=== PATIENT | female | born 1970 | race Hispanic/Latino ===

== ENCOUNTER → 2019-04-04 | Outpatient (CLI) | payer OTHER | END | disposition home or self-care (01) | LOC: RAH 13:18 | PROVIDERS: ATTEND Internal Medicine Cardiovascular Disease | DX: M85.88 Other specified disorders of bone density and structure, other site (principal) | CPT/HCPCS: 72100 ==

== ENCOUNTER → 2019-04-11 | Outpatient (CLI) | payer OTHER | END | disposition home or self-care (01) | LOC: RAH 08:00 | PROVIDERS: ATTEND Internal Medicine Cardiovascular Disease | DX: R10.9 Unspecified abdominal pain (principal) | CPT/HCPCS: 76700 ==

== ENCOUNTER → 2019-07-20 | Outpatient (CLI) | payer OTHER | END | disposition home or self-care (01) | LOC: SHCH 09:10 | PROVIDERS: ATTEND Internal Medicine Cardiovascular Disease | DX: I25.709 Atherosclerosis of coronary artery bypass graft(s), unspecified, with unspecified angina pectoris (principal) | CPT/HCPCS: 93306 ==

== ENCOUNTER → 2019-07-21 | Outpatient (CLI) | payer OTHER ==
[~2019-07-21] VITALS: Ht 152.4 cm; Wt 80.7 kg
[~2019-07-21] MED LIST: REGADENOSON 0.4 MG/5 ML PF SYG IVP SCH
== END | disposition home or self-care (01) ==
LOC: SHCH 07:50
PROVIDERS: ATTEND Internal Medicine Cardiovascular Disease
DX: I35.0 Nonrheumatic aortic (valve) stenosis (principal); R06.00 Dyspnea, unspecified
CPT/HCPCS: 78452; 93017; 96374; A9500 ×2; J2785

== ENCOUNTER 2020-04-08 14:29 | Observation (INO) | payer OTHER ==
[~2020-04-08] VITALS: Ht 154.9 cm; Wt 90.3 kg
[2020-04-08 14:52] LABS: BASOPHILS % (AUTO) 0.6 % (0.0-5.0); EOSINOPHILS % (AUTO) 0.9 % (0.0-8.0); HEMATOCRIT 47.5 % (36-48); LYMPHOCYTES % (AUTO) 22.5 % (21.0-51.0); MEAN CORPUSCULAR HEMOGLOBIN 32.4 pg (27.0-33.0); MEAN CORPUSCULAR HGB CONC 33.3 g/dL (32.0-36.0); MEAN CORPUSCULAR VOLUME 97.5 fL (79-99); MONOCYTES % (AUTO) 9.8 % (3.0-13.0); PLATELET COUNT (AUTO) 351 K/uL (130-400); RED BLOOD CELL COUNT(AUTO) 4.87 MIL/uL (4.00-5.50); RED CELL DISTRIBUTION WIDTH 17.2 % (11.0-15.5); WHITE BLOOD COUNT (AUTO) 8.5 K/uL (4.8-10.8)
[2020-04-08 15:01] LABS: CREATININE 0.7 mg/dL (0.5-1.5); POTASSIUM 3.4 mmol/L (3.5-5.1)
[2020-04-08 15:03] LABS: INR 2.44 (0.85-1.15); PARTIAL THROMBOPLASTIN TIME 37.4 SEC (26.3-35.5); PROTHROMBIN TIME 25.5 SEC (9.6-11.6)
[2020-04-08 15:05] LABS: ALBUMIN 3.9 g/dL (3.5-5.0); BILIRUBIN,TOTAL 1.6 mg/dL (0.2-1.0); TOTAL PROTEIN, SERUM 8.8 g/dL (6.0-8.3)
[2020-04-08 15:13] LABS: B-TYPE NATRIURETIC PEPTIDE 208 pg/mL (0-100)
[2020-04-08] MEDS ORDERED: IOHEXOL-350 50ML VIAL IV ONE (15:19)
[2020-04-08] MEDS ORDERED: LACTULOSE 20 GM/30 ML UDCUP PO PRN (18:30)
[2020-04-08] MEDS ORDERED: ACETAMINOPHEN 325 MG TAB PO PRN ×2 (18:30)
[2020-04-08] MEDS ORDERED: HYDRALAZINE HCL 20 MG/ML VIAL IV PRN (18:30)
[2020-04-08] MEDS ORDERED: ONDANSETRON HCL 4 MG/2 ML VIAL IV PRN (18:30)
[2020-04-08] MEDS ORDERED: IPRATROPIUM/ALBUTEROL SULFATE 3 ML SOLUTION IH PRN (18:30)
[2020-04-08] MEDS ORDERED: FUROSEMIDE 10 MG/ML 4ML VIAL ONE (18:41)
[2020-04-08] MEDS: FUROSEMIDE 10 MG/ML 4ML VIAL IV SCH (19:30)
[2020-04-08] MEDS ORDERED: FAMOTIDINE 20MG TAB 20 MG TAB ONE (20:50)
[2020-04-08] MEDS ORDERED: ZOSYN 3.375GM+NS 50ML 50 ML IV ONE (20:50)
[2020-04-08] MEDS: POTASSIUM CHLORIDE 20 MEQ ERTAB PO SCH (21:00)
[2020-04-08] MEDS ORDERED: POTASSIUM CHLORIDE 20 MEQ ERTAB PO SCH (21:00)
[2020-04-08] MEDS: INSULIN HUMULIN R 100 UNIT/ML 3ML SQ SCH (21:00)
[2020-04-08] MEDS: FAMOTIDINE 20MG TAB 20 MG TAB PO SCH (21:00)
[2020-04-08] MEDS: ZOSYN 3.375GM+NS 50ML 50 ML IV SCH (21:00)
[2020-04-08 21:03] LABS: APPEARANCE,URINE Clear (CLEAR); BILIRUBIN,URINE Negative (NEGATIVE); COLOR,URINE Yellow (YELLOW); GLUCOSE, URINE (UA) Negative (NEGATIVE); KETONES,URINE Negative (NEGATIVE); LEUKOCYTE ESTERASE ,URINE Negative (NEGATIVE); NITRATE,URINE Negative (NEGATIVE); OCCULT BLOOD,URINE Moderate (NEGATIVE); PH,URINE 7.5 (5.0-8.0); PROTEIN,URINE Negative (NEGATIVE)
[2020-04-08 21:15] LABS: WBC,URINE 0-1 /HPF (0-1)
[2020-04-08 21:16] LABS: BACTERIA,URINE Rare /HPF (None Seen); SQUAMOUS EPITHELIAL CELL,UR Few /HPF (0-2)
[2020-04-08 23:23] VITALS: BP 154/103
--- NOTE | 2020-04-09 01:46 | NUR ---
received report from er nurse ion, pt arrived in unit, admission assessment done, education given , pt verbalized understanding, head of bed elevated to 45 degrees, reconciled medication, timed medication given , see emar, 12 cc done, safety maintained, bedin lowest position, call rachel in reached, will continue to monitor.
[2020-04-09] MEDS ORDERED: AEC81 PO (01:59)
[2020-04-09] MEDS ORDERED: WARF-57 PO (01:59)
[2020-04-09] MEDS ORDERED: SAXA1TBM2 PO (01:59)
[2020-04-09] MEDS ORDERED: METO-409 PO (01:59)
[2020-04-09] MEDS ORDERED: FERS325 PO (01:59)
[2020-04-09] MEDS ORDERED: FURO40TA5 PO (01:59)
[2020-04-09] MEDS ORDERED: LOSA50TA64 PO (01:59)
[2020-04-09 03:33] LABS: BASOPHILS % (AUTO) 0.7 % (0.0-5.0); HEMATOCRIT 41.8 % (36-48); LYMPHOCYTES % (AUTO) 20.4 % (21.0-51.0); MEAN CORPUSCULAR HEMOGLOBIN 32.4 pg (27.0-33.0); MEAN CORPUSCULAR HGB CONC 33.3 g/dL (32.0-36.0); MEAN CORPUSCULAR VOLUME 97.4 fL (79-99); MONOCYTES % (AUTO) 11.3 % (3.0-13.0); NEUTROPHILS % (AUTO) 66.5 % (40.0-77.0); PLATELET COUNT (AUTO) 335 K/uL (130-400); RED BLOOD CELL COUNT(AUTO) 4.29 MIL/uL (4.00-5.50); RED CELL DISTRIBUTION WIDTH 17.1 % (11.0-15.5); WHITE BLOOD COUNT (AUTO) 8.2 K/uL (4.8-10.8)
[2020-04-09 03:44] LABS: CREATININE 0.6 mg/dL (0.5-1.5); INR 1.97 (0.85-1.15); POTASSIUM 3.7 mmol/L (3.5-5.1); PROTHROMBIN TIME 20.7 SEC (9.6-11.6)
[2020-04-09 04:03] LABS: B-TYPE NATRIURETIC PEPTIDE 255 pg/mL (0-100)
[2020-04-09 04:20] VITALS: BP 118/80
[2020-04-09] MEDS: ZOSYN 3.375GM+NS 50ML 50 ML IV SCH ×3 (05:45→21:12)
[2020-04-09] MEDS: INSULIN HUMULIN R 100 UNIT/ML 3ML SQ SCH ×4 (05:45→21:00)
[2020-04-09 07:00] VITALS: BP 148/81
[2020-04-09] MEDS ORDERED: LOSARTAN 50 MG TABLET PO SCH (09:00)
[2020-04-09] MEDS ORDERED: METOPROLOL SUCCINATE 50 MG TAB.SR.24H PO SCH (09:00)
[2020-04-09] MEDS ORDERED: WARFARIN SODIUM 7.5 MG TAB PO SCH (09:30)
[2020-04-09] MEDS: FUROSEMIDE 10 MG/ML 4ML VIAL IV SCH ×2 (10:28→21:10)
[2020-04-09] MEDS: FAMOTIDINE 20MG TAB 20 MG TAB PO SCH ×2 (10:29→21:12)
[2020-04-09] MEDS: POTASSIUM CHLORIDE 20 MEQ ERTAB PO SCH ×3 (10:29→21:12)
[2020-04-09 11:00] VITALS: BP 157/87
[2020-04-09 15:00] VITALS: BP 122/76
[2020-04-09] MEDS ORDERED: WARFARIN SODIUM 5 MG TAB PO SCH (16:00)
[2020-04-09 20:59] VITALS: BP 121/76
[2020-04-09] MEDS ORDERED: NON-FORMULARY MEDICATION 1 EACH (Ferrous Sulfate 325 MG) PO SCH (21:00)
[2020-04-09] MEDS: FERROUS SULFATE 325 MG TABLET.DR PO SCH (21:11)
[2020-04-10 00:54] VITALS: BP 114/66
[2020-04-10] MEDS: FUROSEMIDE 10 MG/ML 4ML VIAL IV SCH (06:10)
[2020-04-10] MEDS: ZOSYN 3.375GM+NS 50ML 50 ML IV SCH (06:10)
[2020-04-10 06:11] LABS: INR 2.23 (0.85-1.15); PROTHROMBIN TIME 23.4 SEC (9.6-11.6)
[2020-04-10 06:12] LABS: EOSINOPHILS % (AUTO) 1.7 % (0.0-8.0); HEMATOCRIT 42.1 % (36-48); LYMPHOCYTES % (AUTO) 27.4 % (21.0-51.0); MEAN CORPUSCULAR HEMOGLOBIN 32.5 pg (27.0-33.0); MEAN CORPUSCULAR HGB CONC 33.3 g/dL (32.0-36.0); MEAN CORPUSCULAR VOLUME 97.7 fL (79-99); MONOCYTES % (AUTO) 12.4 % (3.0-13.0); NEUTROPHILS % (AUTO) 57.4 % (40.0-77.0); PLATELET COUNT (AUTO) 332 K/uL (130-400); RED BLOOD CELL COUNT(AUTO) 4.31 MIL/uL (4.00-5.50); WHITE BLOOD COUNT (AUTO) 8.8 K/uL (4.8-10.8)
[2020-04-10 06:27] LABS: CREATININE 0.7 mg/dL (0.5-1.5)
[2020-04-10 06:34] LABS: B-TYPE NATRIURETIC PEPTIDE 154 pg/mL (0-100)
[2020-04-10 06:39] VITALS: BP 142/98
[2020-04-10] MEDS: INSULIN HUMULIN R 100 UNIT/ML 3ML SQ SCH (07:13)
[2020-04-10 08:00] VITALS: BP 126/77
[2020-04-10] MEDS: FAMOTIDINE 20MG TAB 20 MG TAB PO SCH (08:54)
[2020-04-10] MEDS: FERROUS SULFATE 325 MG TABLET.DR PO SCH (08:54)
[2020-04-10] MEDS: POTASSIUM CHLORIDE 20 MEQ ERTAB PO SCH (08:54)
[2020-04-10] MEDS ORDERED: NON-FORMULARY MEDICATION 1 EACH (Metoprolol Succinate 100 MG) PO SCH (09:00)
[2020-04-10] MEDS ORDERED: FUROSEMIDE 40 MG TABLET PO SCH (09:00)
[2020-04-10] MEDS ORDERED: POTASSIUM CHLORIDE 20 MEQ ERTAB PO SCH (09:00)
[2020-04-10] MEDS ORDERED: ASPIRIN 81 MG EC TAB PO SCH (09:00)
[2020-04-10] MEDS ORDERED: METOPROLOL SUCCINATE 50 MG TAB.SR.24H PO SCH (09:00)
[2020-04-10] MEDS ORDERED: WARFARIN SODIUM 5 MG TAB PO SCH (16:00)
[2020-04-10] MEDS ORDERED: LOSARTAN 50 MG TABLET PO SCH (21:00)
== END 2020-04-10 11:30 | disposition home or self-care (01) ==
LOC: EDH 14:29 → EDHIP 18:25 → 4DH 23:00 → UNDODISOB 04-10 11:30
PROVIDERS: ADMIT Internal Medicine; ATTEND Internal Medicine
DX: I11.0 Hypertensive heart disease with heart failure (principal); Z20.828 Contact with and (suspected) exposure to other viral communicable diseases; I50.33 Acute on chronic diastolic (congestive) heart failure; E87.6 Hypokalemia; J98.11 Atelectasis; J90 Pleural effusion, not elsewhere classified; I25.10 Atherosclerotic heart disease of native coronary artery without angina pectoris; I27.21 Secondary pulmonary arterial hypertension; E78.5 Hyperlipidemia, unspecified; E66.01 Morbid (severe) obesity due to excess calories; I37.1 Nonrheumatic pulmonary valve insufficiency; I42.8 Other cardiomyopathies; J96.00 Acute respiratory failure, unspecified whether with hypoxia or hypercapnia; K76.0 Fatty (change of) liver, not elsewhere classified; R18.8 Other ascites; E11.9 Type 2 diabetes mellitus without complications; Z68.37 Body mass index [BMI] 37.0-37.9, adult; Z79.01 Long term (current) use of anticoagulants; Z85.71 Personal history of Hodgkin lymphoma; Z90.81 Acquired absence of spleen; Z92.21 Personal history of antineoplastic chemotherapy; Z95.1 Presence of aortocoronary bypass graft; Z95.2 Presence of prosthetic heart valve
CPT/HCPCS: 36415 ×3; 71045; 71260; 80048 ×2; 80053; 81001; 82948 ×5; 83880 ×3; 85025 ×3; 85610 ×3; 85730; 87040 ×2; 87426; 93005; 93306; 93356; 93970; 94640; 94664; 96365; 96366 ×2; 96375; 96376 ×2; 99285; G0378 ×18; J1940 ×4; J2543 ×5; Q9967; U0003

== ENCOUNTER → 2021-11-24 | Outpatient (CLI) | payer OTHER ==
[~2021-11-24] MED LIST changes: +AEC81 PO; +FERS325 PO; +FURO40TA5 PO; +LOSA50TA64 PO; +METO-409 PO; -REGADENOSON 0.4 MG/5 ML PF SYG IVP SCH; +SAXA1TBM2 PO; +WARF-57 PO
[2021-11-24 12:35] LABS: CREATININE 1.1 mg/dL (0.5-1.5); POTASSIUM 4.1 mmol/L (3.5-5.1)
== END | disposition home or self-care (01) ==
LOC: LAB 11:00
PROVIDERS: ATTEND Internal Medicine Cardiovascular Disease
DX: I10 Essential (primary) hypertension (principal)
CPT/HCPCS: 36415; 80048; 83880

== ENCOUNTER → 2021-12-19 | Outpatient (CLI) | payer OTHER | END | disposition home or self-care (01) | LOC: OIH 08:07 | PROVIDERS: ATTEND Internal Medicine Cardiovascular Disease | DX: I08.3 Combined rheumatic disorders of mitral, aortic and tricuspid valves (principal); I11.9 Hypertensive heart disease without heart failure; E66.9 Obesity, unspecified; Z95.2 Presence of prosthetic heart valve | CPT/HCPCS: 93306 ==

== ENCOUNTER 2022-09-23 14:08 | Inpatient (IN) | payer OTHER ==
[2022-09-23] VITALS (11 sets, daily range): BP systolic 102–135; BP diastolic 54–80
[~2022-09-23] VITALS: Ht 154.9 cm; Wt 80.9 kg
[2022-09-23] MEDS ORDERED: BUMETANIDE 2.5MG/10ML VIAL 40 ML IV SCH (15:30)
[2022-09-23] MEDS ORDERED: 0.9%NACL 10ML VIAL IVP PRN (16:00)
[2022-09-23] MEDS ORDERED: WARFARIN SODIUM 5 MG TAB PO SCH ×2 (16:00)
[2022-09-23] MEDS: BUMETANIDE 0.25MG/ML 40ML IV SCH (17:18)
[2022-09-23] MEDS: NOREPINEPHRIN 4MG/NS 250ML 250 ML IV SCH (17:19)
[2022-09-23 18:16] LABS: INR 3.42 (0.85-1.15); PROTHROMBIN TIME 34.8 SEC (9.6-11.6)
[2022-09-23 18:17] LABS: ALBUMIN 2.3 g/dL (3.5-5.0); CREATININE 1.7 mg/dL (0.5-1.5); MAGNESIUM 2.1 mg/dL (1.80-2.40); PARTIAL THROMBOPLASTIN TIME 41.6 SEC (26.3-35.5); POTASSIUM 3.1 mmol/L (3.5-5.1); TOTAL PROTEIN, SERUM 6.5 g/dL (6.0-8.3)
[2022-09-23 18:21] LABS: EOSINOPHILS % (AUTO) 1.1 % (0.0-8.0); HEMATOCRIT 35.4 % (36-48); LYMPHOCYTES % (AUTO) 10.2 % (21.0-51.0); MEAN CORPUSCULAR HEMOGLOBIN 30.4 pg (27.0-33.0); MEAN CORPUSCULAR HGB CONC 32.8 g/dL (32.0-36.0); MEAN CORPUSCULAR VOLUME 92.7 fL (79-99); MONOCYTES % (AUTO) 11.3 % (3.0-13.0); NEUTROPHILS % (AUTO) 75.9 % (40.0-77.0); PLATELET COUNT (AUTO) 389 K/uL (130-400); RED BLOOD CELL COUNT(AUTO) 3.82 MIL/uL (4.00-5.50); RED CELL DISTRIBUTION WIDTH 16.7 % (11.0-15.5); WHITE BLOOD COUNT (AUTO) 8.2 K/uL (4.8-10.8)
[2022-09-23 18:55] LABS: B-TYPE NATRIURETIC PEPTIDE 611 pg/mL (0-100)
[2022-09-23] MEDS ORDERED: 0.9%NACL 50ML IV SCH (20:00)
[2022-09-23] MEDS: ZOSYN 3.375GM +NS 50ML IVPB SCH (20:23)
[2022-09-23] MEDS ORDERED: LOSARTAN 25 MG TABLET PO SCH ×2 (21:00)
[2022-09-23] MEDS: KCL 20 MEQ ERTAB PO PRN (21:02)
[2022-09-23] MEDS ORDERED: METO-391 PO (21:49)
[2022-09-23] MEDS ORDERED: FERS325 PO (21:49)
[2022-09-23] MEDS ORDERED: SAXA1TBM2 PO (21:49)
[2022-09-24] VITALS (95 sets, daily range): BP systolic 85–135; BP diastolic 39–76
[2022-09-24] MEDS ORDERED: ACETAMINOPHEN 325 MG TAB ONE (00:33)
[2022-09-24] MEDS: KCL 20 MEQ ERTAB PO PRN ×7 (00:34→23:01)
[2022-09-24] MEDS: ACETAMINOPHEN 325 MG TAB PO PRN (00:34)
[2022-09-24] MEDS: BUMETANIDE 0.25MG/ML 40ML IV SCH ×2 (00:36→16:30)
[2022-09-24] MEDS: NOREPINEPHRIN 4MG/NS 250ML 250 ML IV SCH ×2 (02:12→17:09)
[2022-09-24 03:36] LABS: BASOPHILS % (AUTO) 0.7 % (0.0-5.0); EOSINOPHILS % (AUTO) 0.8 % (0.0-8.0); HEMATOCRIT 38.6 % (36-48); LYMPHOCYTES % (AUTO) 8.1 % (21.0-51.0); MEAN CORPUSCULAR HEMOGLOBIN 30.3 pg (27.0-33.0); MEAN CORPUSCULAR HGB CONC 32.6 g/dL (32.0-36.0); MEAN CORPUSCULAR VOLUME 92.8 fL (79-99); PLATELET COUNT (AUTO) 423 K/uL (130-400); RED BLOOD CELL COUNT(AUTO) 4.16 MIL/uL (4.00-5.50); RED CELL DISTRIBUTION WIDTH 16.6 % (11.0-15.5); WHITE BLOOD COUNT (AUTO) 11.7 K/uL (4.8-10.8)
[2022-09-24 03:47] LABS: INR 3.14 (0.85-1.15); PROTHROMBIN TIME 32.1 SEC (9.6-11.6)
[2022-09-24 03:48] LABS: PARTIAL THROMBOPLASTIN TIME 40.2 SEC (26.3-35.5)
[2022-09-24 03:59] LABS: ALBUMIN 2.7 g/dL (3.5-5.0); CREATININE 1.6 mg/dL (0.5-1.5); POTASSIUM 3.4 mmol/L (3.5-5.1); THYROID STIMULATING HORMONE 4.71 uIU/mL (0.36-3.74); TOTAL PROTEIN, SERUM 7.2 g/dL (6.0-8.3)
[2022-09-24 04:06] LABS: HEMOGLOBIN A1C 8.6 % (4.0-6.0)
[2022-09-24] MEDS: ZOSYN 3.375GM +NS 50ML IVPB SCH ×3 (04:42→20:04)
[2022-09-24] MEDS: ASPIRIN 81 MG EC TAB PO SCH (08:40)
[2022-09-24] MEDS: FAMOTIDINE 20MG TAB PO SCH (08:40)
[2022-09-24] MEDS ORDERED: METOPROLOL SUCCINATE 50 MG TAB.SR.24H PO SCH ×2 (09:00)
[2022-09-24] MEDS ORDERED: ASPIRIN 81MG CHEW TAB PO SCH (09:00)
[2022-09-24] MEDS ORDERED: METOLAZONE 2.5 MG TABLET PO SCH (09:00)
[2022-09-24] MEDS: METOLAZONE 2.5 MG TABLET PO SCH (09:02)
[2022-09-24] MEDS ORDERED: POTA-79 PO (09:09)
[2022-09-24] MEDS ORDERED: TORS100T16 PO (09:09)
[2022-09-24] MEDS ORDERED: MAGNESIUM 2GM PREMIX 50ML 50 ML IV PRN (11:30)
[2022-09-24] MEDS: INSULIN HUMULIN R 100 UNIT/ML 3ML SQ SCH ×3 (11:58→20:04)
[2022-09-24] MEDS: ATORVASTATIN 40 MG TABLET PO SCH (20:04)
[2022-09-25] VITALS (79 sets, daily range): BP systolic 83–141; BP diastolic 34–79
[2022-09-25] MEDS: ACETAMINOPHEN 325 MG TAB PO PRN ×2 (01:09→08:49)
[2022-09-25] MEDS: KCL 20 MEQ ERTAB PO PRN ×5 (01:15→22:27)
[2022-09-25 04:08] LABS: BASOPHILS % (AUTO) 0.4 % (0.0-5.0); EOSINOPHILS % (AUTO) 0.6 % (0.0-8.0); LYMPHOCYTES % (AUTO) 6.9 % (21.0-51.0); MEAN CORPUSCULAR HEMOGLOBIN 29.8 pg (27.0-33.0); MEAN CORPUSCULAR HGB CONC 32.8 g/dL (32.0-36.0); MEAN CORPUSCULAR VOLUME 90.9 fL (79-99); MONOCYTES % (AUTO) 12.6 % (3.0-13.0); NEUTROPHILS % (AUTO) 78.9 % (40.0-77.0); PLATELET COUNT (AUTO) 416 K/uL (130-400); RED BLOOD CELL COUNT(AUTO) 4.29 MIL/uL (4.00-5.50); RED CELL DISTRIBUTION WIDTH 16.6 % (11.0-15.5); WHITE BLOOD COUNT (AUTO) 15.9 K/uL (4.8-10.8)
[2022-09-25 04:21] LABS: CREATININE 1.5 mg/dL (0.5-1.5); MAGNESIUM 1.9 mg/dL (1.80-2.40); POTASSIUM 3.7 mmol/L (3.5-5.1)
[2022-09-25] MEDS: ZOSYN 3.375GM +NS 50ML IVPB SCH ×3 (04:34→20:27)
[2022-09-25] MEDS: ASPIRIN 81 MG EC TAB PO SCH (07:55)
[2022-09-25] MEDS: FAMOTIDINE 20MG TAB PO SCH (07:55)
[2022-09-25] MEDS: METOLAZONE 2.5 MG TABLET PO SCH (07:56)
[2022-09-25] MEDS: INSULIN HUMULIN R 100 UNIT/ML 3ML SQ SCH ×4 (07:57→20:29)
[2022-09-25] MEDS ORDERED: LIDOCAINE 5% TOPICAL PATCH TP SCH (09:00)
[2022-09-25 09:24] LABS: INR 2.32 (0.85-1.15); PROTHROMBIN TIME 24.1 SEC (9.6-11.6)
[2022-09-25 09:26] LABS: PARTIAL THROMBOPLASTIN TIME 37.9 SEC (26.3-35.5)
[2022-09-25] MEDS ORDERED: CEFEPIME HCL 1 GM VIAL IVPB SCH (10:00)
[2022-09-25 16:13] LABS: MAGNESIUM 2.3 mg/dL (1.80-2.40)
[2022-09-25 16:18] LABS: POTASSIUM 2.7 mmol/L (3.5-5.1)
[2022-09-25] MEDS: POTASSIUM CHLORIDE 10% ELIXIR 20 MEQ/15 ML UDCUP PO PRN (16:32)
[2022-09-25 17:08] LABS: ABG BASE EXCESS 14.8 mmol/L (-2.0-3.0); ABG HCO3 39.6 mmol/L (21.0-28.0); ABG OXYGEN SATURATION 97.8 % (95.0-99.0); ABG PCO2 48 mmHg (32-45)
[2022-09-25] MEDS: WARFARIN SODIUM 5 MG TAB PO SCH (17:08)
[2022-09-25] MEDS: NOREPINEPHRIN 4MG/NS 250ML 250 ML IV SCH (17:38)
[2022-09-25] MEDS: ATORVASTATIN 40 MG TABLET PO SCH (20:27)
[2022-09-25] MEDS: BUMETANIDE 1MG/4ML VIAL IVP SCH (22:27)
[2022-09-26] VITALS (39 sets, daily range): BP systolic 84–138; BP diastolic 40–93
[2022-09-26] MEDS: POTASSIUM CHLORIDE 10MEQ/100ML 100 ML IV PRN (01:06)
[2022-09-26] MEDS: POTASSIUM CHLORIDE 10% ELIXIR 20 MEQ/15 ML UDCUP PO PRN (01:06)
[2022-09-26] MEDS: KCL 20 MEQ ERTAB PO PRN ×2 (01:12→02:50)
[2022-09-26] MEDS: LIDOCAINE HCL-MPF 1% 2ML VIAL IV PRN ×2 (01:40→02:49)
[2022-09-26] MEDS: POTASSIUM CHLORIDE 20MEQ/100ML 100 ML IV PRN (02:25)
[2022-09-26] MEDS: ACETAMINOPHEN 325 MG TAB PO PRN (02:33)
[2022-09-26 04:18] LABS: INR 1.8 (0.85-1.15)
[2022-09-26 04:30] LABS: CREATININE 1.5 mg/dL (0.5-1.5); MAGNESIUM 2.1 mg/dL (1.80-2.40)
[2022-09-26] MEDS: ZOSYN 3.375GM +NS 50ML IVPB SCH (04:52)
[2022-09-26] MEDS: BUMETANIDE 1MG/4ML VIAL IVP SCH ×3 (05:07→21:37)
[2022-09-26] MEDS: INSULIN HUMULIN R 100 UNIT/ML 3ML SQ SCH ×4 (06:32→21:35)
[2022-09-26] MEDS: METOLAZONE 2.5 MG TABLET PO SCH (09:18)
[2022-09-26] MEDS: MEROPENEM 500 MG VIAL IVPB SCH ×2 (09:18→16:08)
[2022-09-26] MEDS: FAMOTIDINE 20MG TAB PO SCH (09:18)
[2022-09-26] MEDS: MIDODRINE HCL 5 MG TABLET PO SCH ×3 (09:18→21:35)
[2022-09-26] MEDS: ASPIRIN 81 MG EC TAB PO SCH (09:18)
[2022-09-26 12:16] LABS: APPEARANCE,URINE CLOUDY (CLEAR); BILIRUBIN,URINE NEGATIVE (NEGATIVE); COLOR,URINE LIGHT-BROWN (YELLOW); GLUCOSE, URINE (UA) NEGATIVE (NEGATIVE); KETONES,URINE NEGATIVE (NEGATIVE); LEUKOCYTE ESTERASE ,URINE 75 Leu/uL (NEGATIVE); NITRATE,URINE NEGATIVE (NEGATIVE); OCCULT BLOOD,URINE LARGE (NEGATIVE); PROTEIN,URINE 20 mg/dL (NEGATIVE); UROBILINOGEN,URINE 0.2 mg/dL (0.2-1.0)
[2022-09-26 12:25] LABS: OTHER CASTS, URINE 5 /LPF (None Seen); RBC,URINE TNTC /HPF (0-1); WBC,URINE >100 /HPF (0-1)
[2022-09-26] MEDS: ACETAZOLAMIDE SODIUM 500 MG VIAL IV SCH ×2 (14:46→21:35)
[2022-09-26] MEDS: WARFARIN SODIUM 5 MG TAB PO SCH (16:08)
[2022-09-26] MEDS: ATORVASTATIN 40 MG TABLET PO SCH (21:35)
[2022-09-27] MEDS: MEROPENEM 500 MG VIAL IVPB SCH ×4 (00:30→23:59)
[2022-09-27] MEDS: ACETAMINOPHEN 325 MG TAB PO PRN (00:31)
[2022-09-27 04:00] VITALS: BP 107/53
[2022-09-27 04:12] LABS: BASOPHILS % (AUTO) 0.9 % (0.0-5.0); HEMATOCRIT 38.8 % (36-48); LYMPHOCYTES % (AUTO) 5.6 % (21.0-51.0); MEAN CORPUSCULAR HEMOGLOBIN 30.1 pg (27.0-33.0); MEAN CORPUSCULAR HGB CONC 32.5 g/dL (32.0-36.0); MEAN CORPUSCULAR VOLUME 92.6 fL (79-99); MONOCYTES % (AUTO) 13.8 % (3.0-13.0); NEUTROPHILS % (AUTO) 77.3 % (40.0-77.0); NUCLEATED RED BLOOD CELLS 0.2 % (0.0-0.19); PLATELET COUNT (AUTO) 372 K/uL (130-400); RED BLOOD CELL COUNT(AUTO) 4.19 MIL/uL (4.00-5.50); RED CELL DISTRIBUTION WIDTH 16.7 % (11.0-15.5); WHITE BLOOD COUNT (AUTO) 12.8 K/uL (4.8-10.8)
[2022-09-27 04:28] LABS: CREATININE 1.4 mg/dL (0.5-1.5); MAGNESIUM 2.2 mg/dL (1.80-2.40)
[2022-09-27] MEDS: LIDOCAINE HCL-MPF 1% 2ML VIAL IV PRN ×2 (04:43→06:17)
[2022-09-27] MEDS: POTASSIUM CHLORIDE 10% ELIXIR 20 MEQ/15 ML UDCUP PO PRN (04:43)
[2022-09-27] MEDS: POTASSIUM CHLORIDE 20MEQ/100ML 100 ML IV PRN ×2 (04:43→20:45)
[2022-09-27] MEDS: KCL 20 MEQ ERTAB PO PRN ×5 (04:52→16:00)
[2022-09-27] MEDS: POTASSIUM CHLORIDE 10MEQ/100ML 100 ML IV PRN (06:17)
[2022-09-27] MEDS: INSULIN HUMULIN R 100 UNIT/ML 3ML SQ SCH ×4 (06:57→20:43)
[2022-09-27 08:10] VITALS: BP 120/69
[2022-09-27] MEDS: MIDODRINE HCL 5 MG TABLET PO SCH (08:38)
[2022-09-27] MEDS: FAMOTIDINE 20MG TAB PO SCH (08:38)
[2022-09-27] MEDS: ASPIRIN 81 MG EC TAB PO SCH (08:38)
[2022-09-27] MEDS: GABAPENTIN 100 MG CAPSULE PO SCH ×3 (09:50→20:42)
[2022-09-27] MEDS: BUMETANIDE 1MG/4ML VIAL IVP SCH (09:50)
[2022-09-27 10:02] LABS: INR 2.49 (0.85-1.15); PROTHROMBIN TIME 25.8 SEC (9.6-11.6)
[2022-09-27 12:00] VITALS: BP 114/72
[2022-09-27] MEDS: WARFARIN SODIUM 5 MG TAB PO SCH (15:59)
[2022-09-27 16:00] VITALS: BP 107/57
[2022-09-27 20:00] VITALS: BP 146/75
[2022-09-27] MEDS: ATORVASTATIN 40 MG TABLET PO SCH (20:42)
[2022-09-27] MEDS ORDERED: TORSEMIDE 20 MG TAB PO SCH (21:00)
[2022-09-27 23:27] VITALS: BP 116/71
[2022-09-28] MEDS: KCL 20 MEQ ERTAB PO PRN ×5 (02:37→11:56)
[2022-09-28 03:57] VITALS: BP 111/66
[2022-09-28 04:01] LABS: BASOPHILS % (AUTO) 0.9 % (0.0-5.0); EOSINOPHILS % (AUTO) 1.8 % (0.0-8.0); HEMATOCRIT 39.3 % (36-48); LYMPHOCYTES % (AUTO) 9.4 % (21.0-51.0); MEAN CORPUSCULAR HEMOGLOBIN 29.8 pg (27.0-33.0); MEAN CORPUSCULAR HGB CONC 33.3 g/dL (32.0-36.0); MEAN CORPUSCULAR VOLUME 89.3 fL (79-99); MONOCYTES % (AUTO) 15.9 % (3.0-13.0); NEUTROPHILS % (AUTO) 71.6 % (40.0-77.0); NUCLEATED RED BLOOD CELLS 0.2 % (0.0-0.19); PLATELET COUNT (AUTO) 384 K/uL (130-400); RED CELL DISTRIBUTION WIDTH 16.5 % (11.0-15.5); WHITE BLOOD COUNT (AUTO) 10.7 K/uL (4.8-10.8)
[2022-09-28 04:10] LABS: INR 3.01 (0.85-1.15); PROTHROMBIN TIME 30.8 SEC (9.6-11.6)
[2022-09-28 04:11] LABS: CREATININE 1.6 mg/dL (0.5-1.5)
[2022-09-28 04:26] LABS: B-TYPE NATRIURETIC PEPTIDE 1390 pg/mL (0-100)
[2022-09-28 04:47] LABS: POTASSIUM 2.1 mmol/L (3.5-5.1)
[2022-09-28] MEDS: INSULIN HUMULIN R 100 UNIT/ML 3ML SQ SCH ×4 (06:09→20:38)
[2022-09-28] MEDS ORDERED: KCL 20 MEQ ERTAB PO ONE (07:00)
[2022-09-28 08:12] VITALS: BP 119/78
[2022-09-28] MEDS ORDERED: BUMETANIDE 1 MG TAB PO SCH ×2 (09:30→10:00)
[2022-09-28] MEDS ORDERED: METOLAZONE 2.5 MG TABLET PO SCH (09:30)
[2022-09-28] MEDS: MEROPENEM 500 MG VIAL IVPB SCH ×2 (09:55→17:07)
[2022-09-28] MEDS: FAMOTIDINE 20MG TAB PO SCH (09:57)
[2022-09-28] MEDS: ASPIRIN 81 MG EC TAB PO SCH (09:57)
[2022-09-28] MEDS: GABAPENTIN 100 MG CAPSULE PO SCH ×3 (09:57→20:36)
[2022-09-28] MEDS: METOLAZONE 2.5 MG TABLET PO SCH (10:04)
[2022-09-28] MEDS: BUMETANIDE 1 MG TAB PO SCH ×2 (10:04→20:36)
[2022-09-28] MEDS ORDERED: METOPROLOL SUCCINATE 25 MG TAB.SR.24H PO SCH (11:00)
[2022-09-28] MEDS: METOPROLOL SUCCINATE 25 MG TAB.SR.24H PO SCH (11:49)
[2022-09-28 12:11] LABS: CREATININE 1.7 mg/dL (0.5-1.5); POTASSIUM 3.1 mmol/L (3.5-5.1)
[2022-09-28 12:20] VITALS: BP 120/72
[2022-09-28 16:15] VITALS: BP 109/62
[2022-09-28] MEDS: WARFARIN SODIUM 5 MG TAB PO SCH (17:07)
[2022-09-28 20:00] VITALS: BP 113/52
[2022-09-28] MEDS: ATORVASTATIN 40 MG TABLET PO SCH (20:36)
[2022-09-28 23:30] VITALS: BP 100/60
[2022-09-29] VITALS (7 sets, daily range): BP systolic 93–129; BP diastolic 48–74
[2022-09-29] MEDS: MEROPENEM 500 MG VIAL IVPB SCH ×4 (00:47→23:29)
[2022-09-29] MEDS: ACETAMINOPHEN 325 MG TAB PO PRN (02:09)
[2022-09-29 03:53] LABS: BASOPHILS % (AUTO) 0.8 % (0.0-5.0); EOSINOPHILS % (AUTO) 1.9 % (0.0-8.0); LYMPHOCYTES % (AUTO) 7.2 % (21.0-51.0); MEAN CORPUSCULAR HEMOGLOBIN 29.5 pg (27.0-33.0); MEAN CORPUSCULAR HGB CONC 32.8 g/dL (32.0-36.0); MEAN CORPUSCULAR VOLUME 89.9 fL (79-99); MONOCYTES % (AUTO) 14.9 % (3.0-13.0); NEUTROPHILS % (AUTO) 74.8 % (40.0-77.0); PLATELET COUNT (AUTO) 319 K/uL (130-400); RED BLOOD CELL COUNT(AUTO) 4.34 MIL/uL (4.00-5.50); RED CELL DISTRIBUTION WIDTH 16.3 % (11.0-15.5); WHITE BLOOD COUNT (AUTO) 11.8 K/uL (4.8-10.8)
[2022-09-29 04:04] LABS: ALBUMIN 2.6 g/dL (3.5-5.0); CREATININE 1.5 mg/dL (0.5-1.5)
[2022-09-29 04:06] LABS: POTASSIUM 2.1 mmol/L (3.5-5.1)
[2022-09-29] MEDS: LIDOCAINE HCL-MPF 1% 2ML VIAL IV PRN ×4 (04:18→23:30)
[2022-09-29] MEDS: POTASSIUM CHLORIDE 20MEQ/100ML 100 ML IV PRN ×3 (04:18→23:29)
[2022-09-29] MEDS: KCL 20 MEQ ERTAB PO PRN ×7 (06:03→18:22)
[2022-09-29] MEDS: INSULIN HUMULIN R 100 UNIT/ML 3ML SQ SCH ×4 (06:16→20:56)
[2022-09-29 07:04] LABS: INR 3.16 (0.85-1.15); PROTHROMBIN TIME 32.3 SEC (9.6-11.6)
[2022-09-29] MEDS: ASPIRIN 81 MG EC TAB PO SCH (08:37)
[2022-09-29] MEDS: METOPROLOL SUCCINATE 25 MG TAB.SR.24H PO SCH (08:37)
[2022-09-29] MEDS: BUMETANIDE 1 MG TAB PO SCH ×2 (08:37→20:54)
[2022-09-29] MEDS: FAMOTIDINE 20MG TAB PO SCH (08:37)
[2022-09-29] MEDS: METOLAZONE 2.5 MG TABLET PO SCH (08:37)
[2022-09-29] MEDS: GABAPENTIN 100 MG CAPSULE PO SCH ×3 (08:39→20:54)
[2022-09-29] MEDS: POTASSIUM CHLORIDE 10MEQ/100ML 100 ML IV PRN (08:46)
[2022-09-29 10:28] LABS: MAGNESIUM 2.4 mg/dL (1.80-2.40)
[2022-09-29 10:33] LABS: POTASSIUM 2.8 mmol/L (3.5-5.1)
[2022-09-29] MEDS: WARFARIN SODIUM 5 MG TAB PO SCH (15:34)
[2022-09-29 17:56] LABS: MAGNESIUM 2.4 mg/dL (1.80-2.40)
[2022-09-29 17:58] LABS: POTASSIUM 2.7 mmol/L (3.5-5.1)
[2022-09-29] MEDS: ATORVASTATIN 40 MG TABLET PO SCH (20:55)
[2022-09-29] MEDS ORDERED: HYDROCODONE/ACETAMINOPHEN 5/325 MG TAB PO ONE (21:00)
[2022-09-29] MEDS: KCL 20 MEQ ERTAB PO SCH (21:37)
[2022-09-30 03:40] LABS: BASOPHILS % (AUTO) 0.6 % (0.0-5.0); EOSINOPHILS % (AUTO) 1.2 % (0.0-8.0); HEMATOCRIT 38.5 % (36-48); LYMPHOCYTES % (AUTO) 8.4 % (21.0-51.0); MEAN CORPUSCULAR HEMOGLOBIN 29.8 pg (27.0-33.0); MEAN CORPUSCULAR HGB CONC 33.2 g/dL (32.0-36.0); MEAN CORPUSCULAR VOLUME 89.7 fL (79-99); NEUTROPHILS % (AUTO) 75.4 % (40.0-77.0); PLATELET COUNT (AUTO) 333 K/uL (130-400); RED BLOOD CELL COUNT(AUTO) 4.29 MIL/uL (4.00-5.50); RED CELL DISTRIBUTION WIDTH 16.7 % (11.0-15.5)
[2022-09-30 03:57] LABS: ALBUMIN 2.5 g/dL (3.5-5.0); CREATININE 1.6 mg/dL (0.5-1.5); POTASSIUM 3.4 mmol/L (3.5-5.1)
[2022-09-30] MEDS: KCL 20 MEQ ERTAB PO PRN ×2 (04:02→06:15)
[2022-09-30 04:09] VITALS: BP 126/73
[2022-09-30 08:08] VITALS: BP 120/74
[2022-09-30] MEDS: INSULIN HUMULIN R 100 UNIT/ML 3ML SQ SCH (08:23)
[2022-09-30] MEDS: MEROPENEM 500 MG VIAL IVPB SCH (08:25)
[2022-09-30] MEDS: ASPIRIN 81 MG EC TAB PO SCH (08:25)
[2022-09-30] MEDS: GABAPENTIN 100 MG CAPSULE PO SCH (08:26)
[2022-09-30] MEDS: METOLAZONE 2.5 MG TABLET PO SCH (08:26)
[2022-09-30] MEDS: KCL 20 MEQ ERTAB PO SCH (08:26)
[2022-09-30] MEDS: METOPROLOL SUCCINATE 25 MG TAB.SR.24H PO SCH (08:26)
[2022-09-30] MEDS: BUMETANIDE 1 MG TAB PO SCH (08:26)
[2022-09-30] MEDS: FAMOTIDINE 20MG TAB PO SCH (08:26)
[2022-09-30] MEDS ORDERED: FAMO20TA8 PO (09:19)
[2022-09-30] MEDS ORDERED: METO2.5T2 PO (09:19)
[2022-09-30] MEDS ORDERED: BUME1TAB6 PO (09:19)
[2022-09-30] MEDS ORDERED: GABA100C PO (09:19)
[2022-09-30] MEDS ORDERED: METO25TA3 PO (09:19)
[2022-09-30] MEDS ORDERED: ATOR40TA69 PO (09:19)
[2022-09-30] MEDS ORDERED: LEVO-70 PO (09:19)
[2022-09-30] MEDS ORDERED: METOPROLOL SUCCINATE 25 MG TAB.SR.24H PO SCH (10:00)
[2022-09-30] MEDS ORDERED: ONDANSETRON 4MG INJ ONE (10:34)
== END 2022-09-30 11:45 | disposition home or self-care (01) | DRG 871 ==
LOC: EDH 14:08 → DIRECT 14:34 → 2CV 21:30 → 2BH 09-24 14:26 → 2AH 09-26 14:51
PROVIDERS: ADMIT Internal Medicine; ATTEND Internal Medicine
DX: A41.9 Sepsis, unspecified organism (principal); I50.43 Acute on chronic combined systolic (congestive) and diastolic (congestive) heart failure; J96.01 Acute respiratory failure with hypoxia; R65.21 Severe sepsis with septic shock; R57.0 Cardiogenic shock; J18.9 Pneumonia, unspecified organism; I13.0 Hypertensive heart and chronic kidney disease with heart failure and stage 1 through stage 4 chronic kidney disease, or unspecified chronic kidney disease; N17.9 Acute kidney failure, unspecified; N30.01 Acute cystitis with hematuria; I47.20 Ventricular tachycardia, unspecified; I95.9 Hypotension, unspecified; N18.30 Chronic kidney disease, stage 3 unspecified; E11.22 Type 2 diabetes mellitus with diabetic chronic kidney disease; I27.20 Pulmonary hypertension, unspecified; E11.65 Type 2 diabetes mellitus with hyperglycemia; R62.7 Adult failure to thrive; D64.9 Anemia, unspecified; E66.01 Morbid (severe) obesity due to excess calories; E78.5 Hyperlipidemia, unspecified; E87.6 Hypokalemia; I25.10 Atherosclerotic heart disease of native coronary artery without angina pectoris; T45.515A Adverse effect of anticoagulants, initial encounter; Z68.33 Body mass index [BMI] 33.0-33.9, adult; Z79.82 Long term (current) use of aspirin; Z79.01 Long term (current) use of anticoagulants; Z99.3 Dependence on wheelchair; Z95.2 Presence of prosthetic heart valve; Z79.899 Other long term (current) drug therapy; Z83.3 Family history of diabetes mellitus; Z85.72 Personal history of non-Hodgkin lymphomas; Z95.1 Presence of aortocoronary bypass graft; Z92.21 Personal history of antineoplastic chemotherapy
CPT/HCPCS: 36415; 36600; 71045; 76770; 80048; 80053; 81001; 82040; 82803; 82948; 83036; 83605; 83735; 83880; 84100; 84132; 84145; 84443; 85025; 85610; 85730; 87088; 93005; 93306; 97039; G0378; J0692; J1120; J1815; J2185; J2405; J2543; J3475; J3480; J3490

== ENCOUNTER 2022-10-01 20:26 | Inpatient (IN) | payer OTHER ==
[~2022-10-01] VITALS: Ht 154.9 cm; Wt 83.6 kg
[~2022-10-01 20:26] MED LIST changes: +ATOR40TA69 PO; +BUME1TAB6 PO; +FAMO20TA8 PO; -FURO40TA5 PO; +GABA100C PO; +LEVO-70 PO; -METO-409 PO; +METO2.5T2 PO; +METO25TA3 PO; +POTA-79 PO; -WARF-57 PO
[2022-10-01 22:10] LABS: BASOPHILS % (AUTO) 0.4 % (0.0-5.0); EOSINOPHILS % (AUTO) 0.4 % (0.0-8.0); HEMATOCRIT 40.2 % (36-48); MEAN CORPUSCULAR HEMOGLOBIN 29.7 pg (27.0-33.0); MEAN CORPUSCULAR HGB CONC 32.8 g/dL (32.0-36.0); MEAN CORPUSCULAR VOLUME 90.3 fL (79-99); MONOCYTES % (AUTO) 12.4 % (3.0-13.0); NEUTROPHILS % (AUTO) 79.2 % (40.0-77.0); NUCLEATED RED BLOOD CELLS 0.1 % (0.0-0.19); PLATELET COUNT (AUTO) 362 K/uL (130-400); RED BLOOD CELL COUNT(AUTO) 4.45 MIL/uL (4.00-5.50); RED CELL DISTRIBUTION WIDTH 16.9 % (11.0-15.5); WHITE BLOOD COUNT (AUTO) 13.5 K/uL (4.8-10.8)
[2022-10-01 22:17] LABS: ABG BASE EXCESS 2.6 mmol/L (-2.0-3.0); ABG HCO3 25.6 mmol/L (21.0-28.0); ABG OXYGEN SATURATION 96.2 % (95.0-99.0); ABG PCO2 35 mmHg (32-45)
[2022-10-01 22:20] LABS: CREATININE 4.3 mg/dL (0.5-1.5); POTASSIUM 5.1 mmol/L (3.5-5.1)
[2022-10-01 22:27] LABS: ALBUMIN 2.6 g/dL (3.5-5.0); TOTAL PROTEIN, SERUM 8.2 g/dL (6.0-8.3)
[2022-10-01] MEDS ORDERED: MORPHINE 2 MG SYG IV PRN (22:30)
[2022-10-01] MEDS ORDERED: MORPHINE 4 MG SYG IV PRN (22:30)
[2022-10-01] MEDS ORDERED: ASPIRIN 81MG CHEW TAB PO ONE (22:30)
[2022-10-01] MEDS ORDERED: HEPARIN 25,000 UNITS/250ML D5W 250 ML IV SCH (22:30)
[2022-10-01 22:41] LABS: D-DIMER 6020 ng/mL (0-500); INR > 7.00 (0.85-1.15); PROTHROMBIN TIME 70.8 SEC (9.6-11.6)
[2022-10-01] MEDS ORDERED: NOREPINEPHRIN 4MG/NS 250ML 250 ML IV ONE (23:14)
[2022-10-01] MEDS: NOREPINEPHRIN 4MG/NS 250ML 250 ML IV SCH (23:20)
[2022-10-01 23:59] LABS: APPEARANCE,URINE CLEAR (CLEAR); BILIRUBIN,URINE NEGATIVE (NEGATIVE); COLOR,URINE YELLOW (YELLOW); GLUCOSE, URINE (UA) NEGATIVE (NEGATIVE); KETONES,URINE NEGATIVE (NEGATIVE); LEUKOCYTE ESTERASE ,URINE NEGATIVE Leu/uL (NEGATIVE); NITRATE,URINE NEGATIVE (NEGATIVE); OCCULT BLOOD,URINE MODERATE (NEGATIVE); PH,URINE 5.5 (5.0-8.0); PROTEIN,URINE 20 mg/dL (NEGATIVE); UROBILINOGEN,URINE 0.2 mg/dL (0.2-1.0)
[2022-10-02] VITALS (67 sets, daily range): BP systolic 79–132; BP diastolic 43–88
[2022-10-02 00:03] LABS: BACTERIA,URINE RARE /HPF (None Seen); MUCUS,URINE RARE LPF (None Seen); SQUAMOUS EPITHELIAL CELL,UR MOD /HPF (0-2)
[2022-10-02] MEDS: 0.9%NACL 1000ML 1,000 ML IV SCH ×2 (00:12→10:55)
[2022-10-02] MEDS: HYDROMORPHONE 0.5 MG SYG (0.5MG/0.5ML) IVP PRN ×3 (02:01→20:18)
[2022-10-02] MEDS ORDERED: VANCOMYCIN 1G/250ML KIT 250 ML IV ONE (03:00)
[2022-10-02] MEDS ORDERED: VANCOMYCIN PROTOCOL PER PHARMACY IV SCH (03:00)
[2022-10-02 03:57] LABS: BASOPHILS % (AUTO) 0.4 % (0.0-5.0); EOSINOPHILS % (AUTO) 0.5 % (0.0-8.0); HEMATOCRIT 40.2 % (36-48); LYMPHOCYTES % (AUTO) 5.8 % (21.0-51.0); MEAN CORPUSCULAR HEMOGLOBIN 29.5 pg (27.0-33.0); MEAN CORPUSCULAR HGB CONC 32.1 g/dL (32.0-36.0); MEAN CORPUSCULAR VOLUME 91.8 fL (79-99); MONOCYTES % (AUTO) 12.5 % (3.0-13.0); NEUTROPHILS % (AUTO) 80.2 % (40.0-77.0); NUCLEATED RED BLOOD CELLS 0.2 % (0.0-0.19); PLATELET COUNT (AUTO) 346 K/uL (130-400); RED BLOOD CELL COUNT(AUTO) 4.38 MIL/uL (4.00-5.50); WHITE BLOOD COUNT (AUTO) 14.1 K/uL (4.8-10.8)
[2022-10-02] MEDS: CEFEPIME HCL 2 GM VIAL IVP SCH ×2 (04:10→10:55)
[2022-10-02 04:13] LABS: CREATININE 4.6 mg/dL (0.5-1.5); MAGNESIUM 2.7 mg/dL (1.80-2.40); PHOSPHORUS 6.7 mg/dL (2.5-4.9); POTASSIUM 4.6 mmol/L (3.5-5.1)
[2022-10-02] MEDS ORDERED: [UNRECOGNIZED DRUG - REMARK] MISC SCH (06:30)
[2022-10-02] MEDS: ASPIRIN 81MG CHEW TAB PO SCH (09:08)
[2022-10-02] MEDS: PANTOPRAZOLE 40 MG/VIAL IVP SCH (09:08)
[2022-10-02] MEDS ORDERED: LACTULOSE 20 GM/30 ML UDCUP PO ONE (10:00)
[2022-10-02 10:04] LABS: PARTIAL THROMBOPLASTIN TIME 50.9 SEC (26.3-35.5)
[2022-10-02 10:21] LABS: INR > 8.00 (0.85-1.15)
[2022-10-02] MEDS: MEROPENEM 500 MG VIAL IVP SCH (14:42)
[2022-10-02] MEDS: ONDANSETRON 4MG INJ IV PRN (16:19)
[2022-10-02] MEDS: LINEZOLID 600 MG/ISO-OSM 300 ML IV SCH (16:23)
[2022-10-02] MEDS: LACTULOSE 20 GM/30 ML UDCUP PO SCH (20:17)
[2022-10-02] MEDS ORDERED: RENAL DOSE IV PRN (21:00)
[2022-10-03] VITALS (38 sets, daily range): BP systolic 80–119; BP diastolic 32–73
[2022-10-03] MEDS: MEROPENEM 500 MG VIAL IVP SCH ×2 (00:29→12:12)
[2022-10-03] MEDS: LINEZOLID 600 MG/ISO-OSM 300 ML IV SCH ×2 (02:03→14:23)
[2022-10-03 04:17] LABS: BASOPHILS % (AUTO) 0.4 % (0.0-5.0); EOSINOPHILS % (AUTO) 0.6 % (0.0-8.0); HEMATOCRIT 37.7 % (36-48); LYMPHOCYTES % (AUTO) 6.1 % (21.0-51.0); MEAN CORPUSCULAR HEMOGLOBIN 29.9 pg (27.0-33.0); MEAN CORPUSCULAR HGB CONC 32.4 g/dL (32.0-36.0); MEAN CORPUSCULAR VOLUME 92.4 fL (79-99); MONOCYTES % (AUTO) 14.9 % (3.0-13.0); NEUTROPHILS % (AUTO) 77.6 % (40.0-77.0); NUCLEATED RED BLOOD CELLS 0.2 % (0.0-0.19); PLATELET COUNT (AUTO) 351 K/uL (130-400); RED BLOOD CELL COUNT(AUTO) 4.08 MIL/uL (4.00-5.50); RED CELL DISTRIBUTION WIDTH 17.1 % (11.0-15.5); WHITE BLOOD COUNT (AUTO) 12.3 K/uL (4.8-10.8)
[2022-10-03 04:44] LABS: CREATININE 2.9 mg/dL (0.5-1.5); PHOSPHORUS 4.9 mg/dL (2.5-4.9); POTASSIUM 3.8 mmol/L (3.5-5.1)
[2022-10-03 07:15] LABS: ABG BASE EXCESS 5.1 mmol/L (-2.0-3.0); ABG HCO3 28.9 mmol/L (21.0-28.0); ABG OXYGEN SATURATION 97.6 % (95.0-99.0); ABG PCO2 39 mmHg (32-45)
[2022-10-03 07:35] LABS: INR > 8.00 (0.85-1.15)
[2022-10-03] MEDS: LACTULOSE 20 GM/30 ML UDCUP PO SCH ×2 (08:10→20:19)
[2022-10-03] MEDS: HYDROMORPHONE 0.5 MG SYG (0.5MG/0.5ML) IVP PRN (08:11)
[2022-10-03] MEDS: ASPIRIN 81MG CHEW TAB PO SCH (08:11)
[2022-10-03] MEDS: 0.9%NACL 1000ML 1,000 ML IV SCH ×2 (08:11→18:31)
[2022-10-03] MEDS: PANTOPRAZOLE 40 MG/VIAL IVP SCH (08:11)
[2022-10-03] MEDS: ONDANSETRON 4MG INJ IV PRN (09:32)
[2022-10-03] MEDS: POTASSIUM CHLORIDE 10% ELIXIR 20 MEQ/15 ML UDCUP PO PRN ×4 (10:25→20:20)
[2022-10-03] MEDS: KCL 20 MEQ ERTAB PO PRN (12:26)
[2022-10-03] MEDS: GABAPENTIN 100 MG CAPSULE PO SCH (20:21)
[2022-10-03] MEDS: METOPROLOL TARTRATE 25 MG TAB PO SCH (20:21)
[2022-10-04] VITALS (12 sets, daily range): BP systolic 85–115; BP diastolic 56–72
[2022-10-04] MEDS: MEROPENEM 500 MG VIAL IVP SCH ×2 (00:01→12:43)
[2022-10-04] MEDS: LINEZOLID 600 MG/ISO-OSM 300 ML IV SCH ×2 (02:24→14:36)
[2022-10-04 03:11] LABS: HEMATOCRIT 35.7 % (36-48); MEAN CORPUSCULAR HEMOGLOBIN 29.5 pg (27.0-33.0); MEAN CORPUSCULAR HGB CONC 31.9 g/dL (32.0-36.0); MEAN CORPUSCULAR VOLUME 92.2 fL (79-99); NUCLEATED RED BLOOD CELLS 0.2 % (0.0-0.19); RED BLOOD CELL COUNT(AUTO) 3.87 MIL/uL (4.00-5.50); WHITE BLOOD COUNT (AUTO) 12.2 K/uL (4.8-10.8)
[2022-10-04] MEDS: 0.9%NACL 1000ML 1,000 ML IV SCH (03:12)
[2022-10-04 03:27] LABS: CREATININE 1.5 mg/dL (0.5-1.5); MAGNESIUM 2.4 mg/dL (1.80-2.40); POTASSIUM 3.5 mmol/L (3.5-5.1)
[2022-10-04] MEDS: POTASSIUM CHLORIDE 10% ELIXIR 20 MEQ/15 ML UDCUP PO PRN ×2 (06:08→08:55)
[2022-10-04] MEDS: PANTOPRAZOLE 40 MG/VIAL IVP SCH (08:53)
[2022-10-04] MEDS: GABAPENTIN 100 MG CAPSULE PO SCH ×2 (08:54→21:31)
[2022-10-04] MEDS: METOPROLOL TARTRATE 25 MG TAB PO SCH ×2 (08:54→21:29)
[2022-10-04] MEDS: ASPIRIN 81MG CHEW TAB PO SCH (08:54)
[2022-10-04] MEDS: LACTULOSE 20 GM/30 ML UDCUP PO SCH ×2 (08:55→21:27)
[2022-10-04] MEDS ORDERED: BUMETANIDE 1MG/4ML VIAL ONE (11:05)
[2022-10-04] MEDS: BUMETANIDE 1MG/4ML VIAL IVP SCH ×2 (11:35→21:31)
[2022-10-04 11:50] LABS: INR > 8.00 (0.85-1.15)
[2022-10-04] MEDS ORDERED: PHYTONADIONE 10 MG/1 ML AMP IVPB ONE (15:00)
[2022-10-04] MEDS ORDERED: PHYTONADIONE IVPB ONE (15:30)
[2022-10-04] MEDS ORDERED: [UNRECOGNIZED DRUG - OTHER] IVPB ONE (15:30)
[2022-10-04] MEDS: ACETAMINOPHEN 325 MG TAB PO PRN (21:27)
[2022-10-05 00:13] VITALS: BP 125/75
[2022-10-05] MEDS: MEROPENEM 500 MG VIAL IVP SCH ×2 (02:03→13:08)
[2022-10-05] MEDS: ACETAMINOPHEN 325 MG TAB PO PRN (02:04)
[2022-10-05] MEDS: LINEZOLID 600 MG/ISO-OSM 300 ML IV SCH ×2 (03:24→15:36)
[2022-10-05 04:19] LABS: BASOPHILS % (AUTO) 0.3 % (0.0-5.0); EOSINOPHILS % (AUTO) 0.2 % (0.0-8.0); HEMATOCRIT 36.2 % (36-48); MEAN CORPUSCULAR HGB CONC 33.1 g/dL (32.0-36.0); MEAN CORPUSCULAR VOLUME 90.5 fL (79-99); MONOCYTES % (AUTO) 12.2 % (3.0-13.0); NEUTROPHILS % (AUTO) 78.7 % (40.0-77.0); NUCLEATED RED BLOOD CELLS 0.6 % (0.0-0.19); PLATELET COUNT (AUTO) 359 K/uL (130-400); RED CELL DISTRIBUTION WIDTH 16.7 % (11.0-15.5)
[2022-10-05 04:30] VITALS: BP 115/74
[2022-10-05 04:51] LABS: ALBUMIN 2.5 g/dL (3.5-5.0); CREATININE 1.2 mg/dL (0.5-1.5); MAGNESIUM 1.9 mg/dL (1.80-2.40); TOTAL PROTEIN, SERUM 7.5 g/dL (6.0-8.3)
[2022-10-05 04:55] LABS: POTASSIUM 2.2 mmol/L (3.5-5.1)
[2022-10-05 04:59] LABS: INR 2.27 (0.85-1.15); PROTHROMBIN TIME 23.6 SEC (9.6-11.6)
[2022-10-05] MEDS ORDERED: POTASSIUM CHLORIDE 10% ELIXIR 20 MEQ/15 ML UDCUP PO ONE (06:00)
[2022-10-05] MEDS ORDERED: POTASSIUM CHLORIDE 20MEQ/100ML 100 ML IV ONE ×3 (06:00→08:00)
[2022-10-05 08:00] VITALS: BP 115/72
[2022-10-05] MEDS: BUMETANIDE 1MG/4ML VIAL IVP SCH (08:39)
[2022-10-05] MEDS: PANTOPRAZOLE 40 MG/VIAL IVP SCH (08:39)
[2022-10-05] MEDS: GABAPENTIN 100 MG CAPSULE PO SCH ×2 (08:40→21:09)
[2022-10-05] MEDS: METOPROLOL TARTRATE 25 MG TAB PO SCH ×2 (08:40→21:00)
[2022-10-05] MEDS: ASPIRIN 81MG CHEW TAB PO SCH (08:40)
[2022-10-05] MEDS: LACTULOSE 20 GM/30 ML UDCUP PO SCH ×2 (08:41→21:00)
[2022-10-05] MEDS: POTASSIUM CHLORIDE 10% ELIXIR 20 MEQ/15 ML UDCUP PO PRN ×2 (08:54→11:18)
[2022-10-05 12:00] VITALS: BP 103/62
[2022-10-05] MEDS ORDERED: POTASSIUM CHLORIDE 10% ELIXIR 20 MEQ/15 ML UDCUP PO SCH (12:00)
[2022-10-05] MEDS ORDERED: GLUCAGON 1MG KIT 1 MG ML IM PRN (12:30)
[2022-10-05] MEDS ORDERED: DEXTROSE 50%-WATER 50 ML DISP.SYRIN IV PRN (12:30)
[2022-10-05] MEDS: ENOXAPARIN SODIUM 80 MG/0.8 ML SQ SCH (13:31)
[2022-10-05] MEDS: MAGNESIUM 2GM PREMIX 50ML 50 ML IV PRN (15:49)
[2022-10-05 16:00] VITALS: BP 110/65
[2022-10-05] MEDS: INSULIN HUMULIN R 100 UNIT/ML 3ML SQ SCH ×2 (16:34→21:00)
[2022-10-05 19:06] VITALS: BP 79/50
[2022-10-05] MEDS: MIDODRINE HCL 5 MG TABLET PO SCH (21:00)
[2022-10-05] MEDS ORDERED: MIDODRINE HCL 5 MG TABLET ONE (21:08)
[2022-10-06 00:06] VITALS: BP 92/66
[2022-10-06] MEDS: MEROPENEM 500 MG VIAL IVP SCH ×2 (01:36→13:29)
[2022-10-06] MEDS: ENOXAPARIN SODIUM 80 MG/0.8 ML SQ SCH ×2 (01:36→13:56)
[2022-10-06 03:06] VITALS: BP 97/59
[2022-10-06] MEDS: LINEZOLID 600 MG/ISO-OSM 300 ML IV SCH ×2 (03:10→16:11)
[2022-10-06 03:54] LABS: BASOPHILS % (AUTO) 0.1 % (0.0-5.0); EOSINOPHILS % (AUTO) 0.3 % (0.0-8.0); HEMATOCRIT 36.1 % (36-48); LYMPHOCYTES % (AUTO) 5.6 % (21.0-51.0); MEAN CORPUSCULAR HEMOGLOBIN 29.8 pg (27.0-33.0); MEAN CORPUSCULAR VOLUME 90.3 fL (79-99); MONOCYTES % (AUTO) 8.4 % (3.0-13.0); NEUTROPHILS % (AUTO) 84.6 % (40.0-77.0); NUCLEATED RED BLOOD CELLS 0.3 % (0.0-0.19); PLATELET COUNT (AUTO) 378 K/uL (130-400); RED CELL DISTRIBUTION WIDTH 16.7 % (11.0-15.5); WHITE BLOOD COUNT (AUTO) 26.9 K/uL (4.8-10.8)
[2022-10-06 04:10] LABS: ALBUMIN 2.2 g/dL (3.5-5.0); CREATININE 1.6 mg/dL (0.5-1.5); MAGNESIUM 2.4 mg/dL (1.80-2.40); POTASSIUM 3.3 mmol/L (3.5-5.1); TOTAL PROTEIN, SERUM 7.1 g/dL (6.0-8.3)
[2022-10-06 04:39] LABS: B-TYPE NATRIURETIC PEPTIDE 2080 pg/mL (0-100)
[2022-10-06] MEDS: INSULIN HUMULIN R 100 UNIT/ML 3ML SQ SCH ×4 (06:22→21:06)
[2022-10-06] MEDS: KCL 20 MEQ ERTAB PO PRN ×2 (06:43→09:20)
[2022-10-06 08:15] VITALS: BP 103/55
[2022-10-06 08:15] LABS: ABG BASE EXCESS 6.3 mmol/L (-2.0-3.0); ABG HCO3 29.7 mmol/L (21.0-28.0); ABG OXYGEN SATURATION 97.9 % (95.0-99.0); ABG PCO2 38 mmHg (32-45)
[2022-10-06 08:38] LABS: INR 1.55 (0.85-1.15); PROTHROMBIN TIME 16.5 SEC (9.6-11.6)
[2022-10-06] MEDS: PANTOPRAZOLE 40 MG/VIAL IVP SCH (08:56)
[2022-10-06] MEDS: ASPIRIN 81MG CHEW TAB PO SCH (08:56)
[2022-10-06] MEDS: METOPROLOL TARTRATE 25 MG TAB PO SCH (08:57)
[2022-10-06] MEDS: MIDODRINE HCL 5 MG TABLET PO SCH ×3 (08:57→21:02)
[2022-10-06] MEDS: GABAPENTIN 100 MG CAPSULE PO SCH ×2 (08:59→21:01)
[2022-10-06] MEDS: LACTULOSE 20 GM/30 ML UDCUP PO SCH ×2 (09:18→21:02)
[2022-10-06 12:06] VITALS: BP 75/46
[2022-10-06 16:13] VITALS: BP 90/60
[2022-10-06 20:00] VITALS: BP 87/50
[2022-10-06] MEDS ORDERED: BUMETANIDE 1MG/4ML VIAL IVP SCH (21:00)
[2022-10-07] VITALS (29 sets, daily range): BP systolic 68–127; BP diastolic 41–98
[2022-10-07] MEDS: MEROPENEM 500 MG VIAL IVP SCH ×3 (01:00→23:51)
[2022-10-07] MEDS: ENOXAPARIN SODIUM 80 MG/0.8 ML SQ SCH ×2 (01:01→12:45)
[2022-10-07] MEDS: LINEZOLID 600 MG/ISO-OSM 300 ML IV SCH ×2 (02:43→15:00)
[2022-10-07 04:21] LABS: BASOPHILS % (AUTO) 0.3 % (0.0-5.0); EOSINOPHILS % (AUTO) 0.4 % (0.0-8.0); HEMATOCRIT 31.2 % (36-48); LYMPHOCYTES % (AUTO) 4.3 % (21.0-51.0); MEAN CORPUSCULAR HEMOGLOBIN 29.6 pg (27.0-33.0); MEAN CORPUSCULAR VOLUME 89.7 fL (79-99); MONOCYTES % (AUTO) 9.5 % (3.0-13.0); NEUTROPHILS % (AUTO) 84.3 % (40.0-77.0); NUCLEATED RED BLOOD CELLS 0.4 % (0.0-0.19); PLATELET COUNT (AUTO) 351 K/uL (130-400); RED BLOOD CELL COUNT(AUTO) 3.48 MIL/uL (4.00-5.50); RED CELL DISTRIBUTION WIDTH 16.9 % (11.0-15.5); WHITE BLOOD COUNT (AUTO) 29.9 K/uL (4.8-10.8)
[2022-10-07 04:43] LABS: ALBUMIN 1.9 g/dL (3.5-5.0); CREATININE 3.1 mg/dL (0.5-1.5); POTASSIUM 3.5 mmol/L (3.5-5.1); TOTAL PROTEIN, SERUM 6.4 g/dL (6.0-8.3)
[2022-10-07] MEDS: INSULIN HUMULIN R 100 UNIT/ML 3ML SQ SCH ×4 (07:30→20:09)
[2022-10-07] MEDS: LACTULOSE 20 GM/30 ML UDCUP PO SCH ×2 (08:43→20:08)
[2022-10-07] MEDS: PANTOPRAZOLE 40 MG/VIAL IVP SCH (08:43)
[2022-10-07] MEDS: GABAPENTIN 100 MG CAPSULE PO SCH ×2 (08:44→20:08)
[2022-10-07] MEDS: MIDODRINE HCL 5 MG TABLET PO SCH ×3 (08:44→20:08)
[2022-10-07] MEDS: ASPIRIN 81MG CHEW TAB PO SCH (08:44)
[2022-10-07] MEDS: 0.9%NACL 1000ML 1,000 ML IV SCH ×2 (10:00→20:09)
[2022-10-07 10:07] LABS: INR 1.39 (0.85-1.15); PROTHROMBIN TIME 14.9 SEC (9.6-11.6)
[2022-10-07] MEDS ORDERED: BUMETANIDE 1MG/4ML VIAL IM SCH (10:30)
[2022-10-07] MEDS ORDERED: ALBUMIN (HUMAN) 5% 250 ML IV SCH ×2 (10:30→12:30)
[2022-10-07] MEDS ORDERED: BUMETANIDE 1MG/4ML VIAL IV SCH (11:00)
[2022-10-07] MEDS ORDERED: LINEZOLID 600 MG/ISO-OSM 300 ML IV ONE (17:40)
[2022-10-07] MEDS: ACETAMINOPHEN 325 MG TAB PO PRN (23:52)
[2022-10-08] VITALS (92 sets, daily range): BP systolic 76–123; BP diastolic 34–105
[2022-10-08] MEDS: ENOXAPARIN SODIUM 80 MG/0.8 ML SQ SCH ×2 (01:57→12:04)
[2022-10-08 04:19] LABS: BASOPHILS % (AUTO) 0.3 % (0.0-5.0); EOSINOPHILS % (AUTO) 0.1 % (0.0-8.0); HEMATOCRIT 31.6 % (36-48); LYMPHOCYTES % (AUTO) 2.6 % (21.0-51.0); MEAN CORPUSCULAR HGB CONC 34.5 g/dL (32.0-36.0); MEAN CORPUSCULAR VOLUME 87.1 fL (79-99); NEUTROPHILS % (AUTO) 86.8 % (40.0-77.0); NUCLEATED RED BLOOD CELLS 0.7 % (0.0-0.19); PLATELET COUNT (AUTO) 423 K/uL (130-400); RED BLOOD CELL COUNT(AUTO) 3.63 MIL/uL (4.00-5.50); RED CELL DISTRIBUTION WIDTH 17.2 % (11.0-15.5); WHITE BLOOD COUNT (AUTO) 26.6 K/uL (4.8-10.8)
[2022-10-08 04:38] LABS: INR 1.25 (0.85-1.15); PROTHROMBIN TIME 13.5 SEC (9.6-11.6)
[2022-10-08 04:51] LABS: ALBUMIN 2.1 g/dL (3.5-5.0); CREATININE 3.1 mg/dL (0.5-1.5); MAGNESIUM 2.4 mg/dL (1.80-2.40)
[2022-10-08] MEDS: NOREPINEPHRIN 4MG/NS 250ML 250 ML IV SCH ×2 (06:28→18:54)
[2022-10-08] MEDS: POTASSIUM CHLORIDE 10% ELIXIR 20 MEQ/15 ML UDCUP PO PRN ×5 (06:48→14:12)
[2022-10-08] MEDS: INSULIN HUMULIN R 100 UNIT/ML 3ML SQ SCH ×4 (07:29→20:05)
[2022-10-08] MEDS: LACTULOSE 20 GM/30 ML UDCUP PO SCH ×2 (08:10→19:59)
[2022-10-08] MEDS: MIDODRINE HCL 5 MG TABLET PO SCH ×3 (08:11→20:02)
[2022-10-08] MEDS: GABAPENTIN 100 MG CAPSULE PO SCH ×2 (08:11→20:00)
[2022-10-08] MEDS: PANTOPRAZOLE 40 MG/VIAL IVP SCH (08:11)
[2022-10-08] MEDS: ASPIRIN 81MG CHEW TAB PO SCH (08:11)
[2022-10-08] MEDS: MEROPENEM 500 MG VIAL IVP SCH (12:04)
[2022-10-08] MEDS: WARFARIN SODIUM 5 MG TAB PO SCH (16:07)
[2022-10-08] MEDS ORDERED: ALBUMIN (HUMAN) 25% 50 ML IV SCH (18:30)
[2022-10-08] MEDS ORDERED: BUMETANIDE 1MG/4ML VIAL IM SCH (20:00)
[2022-10-08] MEDS ORDERED: BUMETANIDE 1MG/4ML VIAL IVP SCH (20:00)
[2022-10-09] VITALS (90 sets, daily range): BP systolic 81–119; BP diastolic 36–85
[2022-10-09] MEDS: ENOXAPARIN SODIUM 80 MG/0.8 ML SQ SCH ×2 (00:35→12:03)
[2022-10-09] MEDS: MEROPENEM 500 MG VIAL IVP SCH ×2 (00:35→12:03)
[2022-10-09] MEDS: ACETAMINOPHEN 325 MG TAB PO PRN (00:36)
[2022-10-09 03:57] LABS: BASOPHILS % (AUTO) 0.2 % (0.0-5.0); EOSINOPHILS % (AUTO) 0.6 % (0.0-8.0); HEMATOCRIT 31.3 % (36-48); LYMPHOCYTES % (AUTO) 1.8 % (21.0-51.0); MEAN CORPUSCULAR HEMOGLOBIN 29.5 pg (27.0-33.0); MEAN CORPUSCULAR HGB CONC 33.9 g/dL (32.0-36.0); MEAN CORPUSCULAR VOLUME 87.2 fL (79-99); MONOCYTES % (AUTO) 9.6 % (3.0-13.0); NEUTROPHILS % (AUTO) 86.8 % (40.0-77.0); NUCLEATED RED BLOOD CELLS 3.3 % (0.0-0.19); PLATELET COUNT (AUTO) 398 K/uL (130-400); RED BLOOD CELL COUNT(AUTO) 3.59 MIL/uL (4.00-5.50); RED CELL DISTRIBUTION WIDTH 17.1 % (11.0-15.5); WHITE BLOOD COUNT (AUTO) 21.6 K/uL (4.8-10.8)
[2022-10-09 04:12] LABS: INR 1.32 (0.85-1.15); PROTHROMBIN TIME 14.2 SEC (9.6-11.6)
[2022-10-09 04:22] LABS: ALBUMIN 1.9 g/dL (3.5-5.0); CREATININE 2.8 mg/dL (0.5-1.5); MAGNESIUM 2.3 mg/dL (1.80-2.40); POTASSIUM 3.6 mmol/L (3.5-5.1)
[2022-10-09] MEDS: NOREPINEPHRIN 4MG/NS 250ML 250 ML IV SCH ×3 (05:26→20:41)
[2022-10-09] MEDS: INSULIN HUMULIN R 100 UNIT/ML 3ML SQ SCH ×4 (07:25→20:30)
[2022-10-09] MEDS: GABAPENTIN 100 MG CAPSULE PO SCH ×2 (07:53→20:25)
[2022-10-09] MEDS: ASPIRIN 81MG CHEW TAB PO SCH (07:53)
[2022-10-09] MEDS: PANTOPRAZOLE 40 MG/VIAL IVP SCH (07:54)
[2022-10-09] MEDS: MIDODRINE HCL 5 MG TABLET PO SCH ×3 (07:54→20:25)
[2022-10-09] MEDS: LACTULOSE 20 GM/30 ML UDCUP PO SCH ×2 (08:13→20:25)
[2022-10-09] MEDS: BUMETANIDE 2.5MG/10ML VIAL 40 ML IV SCH ×2 (11:19→20:30)
[2022-10-09] MEDS: WARFARIN SODIUM 5 MG TAB PO SCH (16:25)
[2022-10-09] MEDS: KCL 20 MEQ ERTAB PO PRN (18:10)
[2022-10-10] VITALS (94 sets, daily range): BP systolic 79–125; BP diastolic 31–70
[2022-10-10 01:29] LABS: BILIRUBIN,URINE NEGATIVE (NEGATIVE); COLOR,URINE YELLOW (YELLOW); GLUCOSE, URINE (UA) NEGATIVE (NEGATIVE); KETONES,URINE 5 mg/dL (NEGATIVE); LEUKOCYTE ESTERASE ,URINE NEGATIVE Leu/uL (NEGATIVE); NITRATE,URINE NEGATIVE (NEGATIVE); OCCULT BLOOD,URINE LARGE (NEGATIVE); PROTEIN,URINE 300 mg/dL (NEGATIVE); UROBILINOGEN,URINE 0.2 mg/dL (0.2-1.0)
[2022-10-10 01:31] LABS: APPEARANCE,URINE SLIGHTLY CLOUDY (CLEAR)
[2022-10-10] MEDS: MEROPENEM 500 MG VIAL IVP SCH ×2 (01:31→12:00)
[2022-10-10] MEDS: ENOXAPARIN SODIUM 80 MG/0.8 ML SQ SCH ×2 (01:36→12:00)
[2022-10-10 01:41] LABS: BACTERIA,URINE Moderate /HPF (None Seen)
[2022-10-10 01:42] LABS: AMORPHOUS SEDIMENT,UR Few /LPF (None Seen); SQUAMOUS EPITHELIAL CELL,UR Few /HPF (0-2)
[2022-10-10 04:10] LABS: BASOPHILS % (AUTO) 0.2 % (0.0-5.0); EOSINOPHILS % (AUTO) 0.2 % (0.0-8.0); HEMATOCRIT 28.6 % (36-48); LYMPHOCYTES % (AUTO) 2.1 % (21.0-51.0); MEAN CORPUSCULAR HEMOGLOBIN 29.9 pg (27.0-33.0); MEAN CORPUSCULAR HGB CONC 35.3 g/dL (32.0-36.0); MEAN CORPUSCULAR VOLUME 84.6 fL (79-99); MONOCYTES % (AUTO) 11.8 % (3.0-13.0); NEUTROPHILS % (AUTO) 84.8 % (40.0-77.0); NUCLEATED RED BLOOD CELLS 5.6 % (0.0-0.19); PLATELET COUNT (AUTO) 379 K/uL (130-400); RED BLOOD CELL COUNT(AUTO) 3.38 MIL/uL (4.00-5.50); RED CELL DISTRIBUTION WIDTH 17.2 % (11.0-15.5); WHITE BLOOD COUNT (AUTO) 18.3 K/uL (4.8-10.8)
[2022-10-10 04:16] LABS: INR 1.74 (0.85-1.15); PROTHROMBIN TIME 18.4 SEC (9.6-11.6)
[2022-10-10 04:24] LABS: CREATININE 1.8 mg/dL (0.5-1.5); MAGNESIUM 2.1 mg/dL (1.80-2.40); POTASSIUM 3.1 mmol/L (3.5-5.1)
[2022-10-10 04:40] LABS: B-TYPE NATRIURETIC PEPTIDE 1990 pg/mL (0-100)
[2022-10-10 06:00] LABS: LYMPHOCYTES % (MANUAL) 5 % (22-44); MONOCYTES % (MANUAL) 8 % (2-9); SEGMENTED NEUTROPHILS % 87 % (40-70)
[2022-10-10 06:01] LABS: MAN.DIFF COMMENT-IMPRESSION MANUAL DIFFERENTIAL
[2022-10-10 06:04] LABS: PLATELET MORPHOLOGY COMMENT LARGE PLTS PRESENT
[2022-10-10] MEDS: INSULIN HUMULIN R 100 UNIT/ML 3ML SQ SCH ×4 (06:05→20:47)
[2022-10-10] MEDS: KCL 20 MEQ ERTAB PO PRN ×4 (06:09→23:09)
[2022-10-10] MEDS: MIDODRINE HCL 5 MG TABLET PO SCH ×3 (08:11→20:30)
[2022-10-10] MEDS: ASPIRIN 81MG CHEW TAB PO SCH (08:11)
[2022-10-10] MEDS: LACTULOSE 20 GM/30 ML UDCUP PO SCH ×2 (08:11→20:38)
[2022-10-10] MEDS: PANTOPRAZOLE 40 MG/VIAL IVP SCH (08:12)
[2022-10-10] MEDS: GABAPENTIN 100 MG CAPSULE PO SCH ×2 (08:12→20:29)
[2022-10-10] MEDS: NOREPINEPHRIN 4MG/NS 250ML 250 ML IV SCH ×2 (08:48→20:30)
[2022-10-10] MEDS ORDERED: TRANEXAMIC ACID 1000MG/10ML IV ONE (15:00)
[2022-10-10] MEDS: BUMETANIDE 2.5MG/10ML VIAL 40 ML IV SCH (15:44)
[2022-10-10] MEDS: WARFARIN SODIUM 5 MG TAB PO SCH (17:03)
[2022-10-10] MEDS: POTASSIUM CHLORIDE 10% ELIXIR 20 MEQ/15 ML UDCUP PO PRN (20:30)
[2022-10-10] MEDS: ACETAMINOPHEN 325 MG TAB PO PRN (22:11)
[2022-10-11] VITALS (84 sets, daily range): BP systolic 81–123; BP diastolic 44–98
[2022-10-11] MEDS: MEROPENEM 500 MG VIAL IVP SCH ×2 (01:07→14:03)
[2022-10-11] MEDS: ENOXAPARIN SODIUM 80 MG/0.8 ML SQ SCH ×2 (01:08→15:44)
[2022-10-11 04:08] LABS: BASOPHILS % (AUTO) 0.2 % (0.0-5.0); EOSINOPHILS % (AUTO) 0.6 % (0.0-8.0); HEMATOCRIT 29.8 % (36-48); LYMPHOCYTES % (AUTO) 1.5 % (21.0-51.0); MEAN CORPUSCULAR HEMOGLOBIN 29.4 pg (27.0-33.0); MEAN CORPUSCULAR HGB CONC 33.6 g/dL (32.0-36.0); MEAN CORPUSCULAR VOLUME 87.6 fL (79-99); MONOCYTES % (AUTO) 12.9 % (3.0-13.0); NEUTROPHILS % (AUTO) 83.8 % (40.0-77.0); NUCLEATED RED BLOOD CELLS 7.8 % (0.0-0.19); PLATELET COUNT (AUTO) 359 K/uL (130-400); RED CELL DISTRIBUTION WIDTH 17.7 % (11.0-15.5); WHITE BLOOD COUNT (AUTO) 16.2 K/uL (4.8-10.8)
[2022-10-11 04:25] LABS: INR 3.3 (0.85-1.15); PROTHROMBIN TIME 33.6 SEC (9.6-11.6)
[2022-10-11 04:37] LABS: CREATININE 1.3 mg/dL (0.5-1.5); MAGNESIUM 1.8 mg/dL (1.80-2.40); POTASSIUM 3.3 mmol/L (3.5-5.1)
[2022-10-11 05:28] LABS: B-TYPE NATRIURETIC PEPTIDE 2530 pg/mL (0-100)
[2022-10-11] MEDS: INSULIN HUMULIN R 100 UNIT/ML 3ML SQ SCH ×4 (06:16→20:40)
[2022-10-11] MEDS: PANTOPRAZOLE 40 MG/VIAL IVP SCH (08:24)
[2022-10-11] MEDS: KCL 20 MEQ ERTAB PO PRN (08:25)
[2022-10-11] MEDS: MIDODRINE HCL 5 MG TABLET PO SCH ×3 (08:25→20:29)
[2022-10-11] MEDS: GABAPENTIN 100 MG CAPSULE PO SCH ×2 (08:25→20:29)
[2022-10-11] MEDS: MAGNESIUM 2GM PREMIX 50ML 50 ML IV PRN (08:26)
[2022-10-11] MEDS: LACTULOSE 20 GM/30 ML UDCUP PO SCH (08:31)
[2022-10-11] MEDS ORDERED: MIDODRINE HCL 5 MG TABLET PO STA (09:28)
[2022-10-11] MEDS ORDERED: LACTULOSE 20 GM/30 ML UDCUP PO PRN (09:30)
[2022-10-11] MEDS: NOREPINEPHRIN 4MG/NS 250ML 250 ML IV SCH (09:57)
[2022-10-11] MEDS: BUMETANIDE 2.5MG/10ML VIAL 40 ML IV SCH (10:51)
[2022-10-11] MEDS ORDERED: ACETAZOLAMIDE SODIUM 500 MG VIAL IV SCH (14:00)
[2022-10-11] MEDS: ASPIRIN 81MG CHEW TAB PO SCH (15:41)
[2022-10-11] MEDS: WARFARIN SODIUM 5 MG TAB PO SCH (16:45)
[2022-10-11] MEDS: ACETAMINOPHEN 325 MG TAB PO PRN (20:28)
[2022-10-12] VITALS (73 sets, daily range): BP systolic 85–129; BP diastolic 39–91
[2022-10-12] MEDS: ENOXAPARIN SODIUM 80 MG/0.8 ML SQ SCH (00:33)
[2022-10-12] MEDS: MEROPENEM 500 MG VIAL IVP SCH ×2 (00:33→13:07)
[2022-10-12] MEDS: NOREPINEPHRIN 4MG/NS 250ML 250 ML IV SCH (00:34)
[2022-10-12] MEDS: INSULIN HUMULIN R 100 UNIT/ML 3ML SQ SCH ×4 (05:12→20:33)
[2022-10-12 05:17] LABS: CREATININE 1.1 mg/dL (0.5-1.5); MAGNESIUM 2.1 mg/dL (1.80-2.40); PHOSPHORUS 3.4 mg/dL (2.5-4.9); TOTAL PROTEIN, SERUM 7.1 g/dL (6.0-8.3)
[2022-10-12 05:24] LABS: BASOPHILS % (AUTO) 0.4 % (0.0-5.0); EOSINOPHILS % (AUTO) 0.7 % (0.0-8.0); HEMATOCRIT 28.4 % (36-48); LYMPHOCYTES % (AUTO) 2.7 % (21.0-51.0); MEAN CORPUSCULAR HEMOGLOBIN 29.5 pg (27.0-33.0); MEAN CORPUSCULAR HGB CONC 33.8 g/dL (32.0-36.0); MEAN CORPUSCULAR VOLUME 87.4 fL (79-99); MONOCYTES % (AUTO) 13.9 % (3.0-13.0); NEUTROPHILS % (AUTO) 80.6 % (40.0-77.0); NUCLEATED RED BLOOD CELLS 14.7 % (0.0-0.19); PLATELET COUNT (AUTO) 326 K/uL (130-400); RED BLOOD CELL COUNT(AUTO) 3.25 MIL/uL (4.00-5.50); RED CELL DISTRIBUTION WIDTH 18.1 % (11.0-15.5); WHITE BLOOD COUNT (AUTO) 16.5 K/uL (4.8-10.8)
[2022-10-12 05:55] LABS: POTASSIUM 2.9 mmol/L (3.5-5.1)
[2022-10-12] MEDS: KCL 20 MEQ ERTAB PO PRN ×4 (06:11→14:21)
[2022-10-12 07:05] LABS: INR > 7.00 (0.85-1.15); PROTHROMBIN TIME 76.4 SEC (9.6-11.6)
[2022-10-12] MEDS: PANTOPRAZOLE 40 MG/VIAL IVP SCH (07:39)
[2022-10-12] MEDS: GABAPENTIN 100 MG CAPSULE PO SCH ×2 (07:39→20:02)
[2022-10-12] MEDS: MIDODRINE HCL 5 MG TABLET PO SCH ×3 (07:40→20:02)
[2022-10-12] MEDS: BUMETANIDE 2.5MG/10ML VIAL 40 ML IV SCH (07:47)
[2022-10-12] MEDS: ASPIRIN 81MG CHEW TAB PO SCH (09:00)
[2022-10-12] MEDS: BUMETANIDE 1 MG TAB PO SCH (20:02)
[2022-10-13] VITALS (37 sets, daily range): BP systolic 91–131; BP diastolic 48–103
[2022-10-13] MEDS: MEROPENEM 500 MG VIAL IVP SCH ×2 (01:03→12:54)
[2022-10-13] MEDS: ACETAMINOPHEN 325 MG TAB PO PRN (03:19)
[2022-10-13 04:28] LABS: BASOPHILS % (AUTO) 0.5 % (0.0-5.0); EOSINOPHILS % (AUTO) 0.6 % (0.0-8.0); HEMATOCRIT 26.2 % (36-48); LYMPHOCYTES % (AUTO) 3.1 % (21.0-51.0); MEAN CORPUSCULAR HEMOGLOBIN 29.9 pg (27.0-33.0); MEAN CORPUSCULAR VOLUME 87.9 fL (79-99); MONOCYTES % (AUTO) 12.5 % (3.0-13.0); NEUTROPHILS % (AUTO) 76.2 % (40.0-77.0); NUCLEATED RED BLOOD CELLS 19.4 % (0.0-0.19); PLATELET COUNT (AUTO) 278 K/uL (130-400); RED BLOOD CELL COUNT(AUTO) 2.98 MIL/uL (4.00-5.50); RED CELL DISTRIBUTION WIDTH 17.9 % (11.0-15.5); WHITE BLOOD COUNT (AUTO) 24.4 K/uL (4.8-10.8)
[2022-10-13 04:45] LABS: ALBUMIN 1.9 g/dL (3.5-5.0); CREATININE 1.2 mg/dL (0.5-1.5); POTASSIUM 3.7 mmol/L (3.5-5.1); TOTAL PROTEIN, SERUM 6.7 g/dL (6.0-8.3)
[2022-10-13 04:54] LABS: B-TYPE NATRIURETIC PEPTIDE 1590 pg/mL (0-100)
[2022-10-13 05:01] LABS: INR 6.9 (0.85-1.15); PROTHROMBIN TIME 67.4 SEC (9.6-11.6)
[2022-10-13] MEDS: KCL 20 MEQ ERTAB PO PRN (06:08)
[2022-10-13] MEDS: INSULIN HUMULIN R 100 UNIT/ML 3ML SQ SCH ×3 (06:44→16:11)
[2022-10-13] MEDS: MIDODRINE HCL 5 MG TABLET PO SCH ×2 (09:08→12:54)
[2022-10-13] MEDS: BUMETANIDE 1 MG TAB PO SCH (09:08)
[2022-10-13] MEDS: GABAPENTIN 100 MG CAPSULE PO SCH (09:08)
[2022-10-13] MEDS: PANTOPRAZOLE 40 MG/VIAL IVP SCH (09:09)
[2022-10-13] MEDS: ASPIRIN 81MG CHEW TAB PO SCH (09:09)
== END 2022-10-13 20:59 | DRG 871 ==
LOC: EDH 20:26 → EDHIP 22:21 → 2CH 10-02 00:49 → 2DH 10-04 05:45 → 2BH 10-07 16:30
PROVIDERS: ADMIT Internal Medicine; ATTEND Internal Medicine
DX: A41.9 Sepsis, unspecified organism (principal); G93.41 Metabolic encephalopathy; R57.0 Cardiogenic shock; R65.21 Severe sepsis with septic shock; I21.A1 Myocardial infarction type 2; J96.21 Acute and chronic respiratory failure with hypoxia; I50.43 Acute on chronic combined systolic (congestive) and diastolic (congestive) heart failure; J18.9 Pneumonia, unspecified organism; I13.0 Hypertensive heart and chronic kidney disease with heart failure and stage 1 through stage 4 chronic kidney disease, or unspecified chronic kidney disease; N17.9 Acute kidney failure, unspecified; E87.1 Hypo-osmolality and hyponatremia; D84.9 Immunodeficiency, unspecified; N30.00 Acute cystitis without hematuria; C85.90 Non-Hodgkin lymphoma, unspecified, unspecified site; E44.0 Moderate protein-calorie malnutrition; I42.9 Cardiomyopathy, unspecified; M48.54XA Collapsed vertebra, not elsewhere classified, thoracic region, initial encounter for fracture; Z68.45 Body mass index [BMI] 70 or greater, adult; I50.82 Biventricular heart failure; Z99.81 Dependence on supplemental oxygen; D75.839 Thrombocytosis, unspecified; B96.89 Other specified bacterial agents as the cause of diseases classified elsewhere; I50.84 End stage heart failure; D64.9 Anemia, unspecified; E11.22 Type 2 diabetes mellitus with diabetic chronic kidney disease; E11.65 Type 2 diabetes mellitus with hyperglycemia; E66.01 Morbid (severe) obesity due to excess calories; E78.00 Pure hypercholesterolemia, unspecified; E83.52 Hypercalcemia; E87.6 Hypokalemia; I08.3 Combined rheumatic disorders of mitral, aortic and tricuspid valves; I25.10 Atherosclerotic heart disease of native coronary artery without angina pectoris; I27.22 Pulmonary hypertension due to left heart disease; I49.3 Ventricular premature depolarization; I95.89 Other hypotension; J98.4 Other disorders of lung; K75.9 Inflammatory liver disease, unspecified; N18.30 Chronic kidney disease, stage 3 unspecified; T45.515A Adverse effect of anticoagulants, initial encounter; Z66 Do not resuscitate; R62.7 Adult failure to thrive; I25.2 Old myocardial infarction; Z90.81 Acquired absence of spleen; Z79.01 Long term (current) use of anticoagulants; Z95.1 Presence of aortocoronary bypass graft; Z74.01 Bed confinement status; Z79.82 Long term (current) use of aspirin; Z92.21 Personal history of antineoplastic chemotherapy; Z95.2 Presence of prosthetic heart valve; Z79.899 Other long term (current) drug therapy; Z88.8 Allergy status to other drugs, medicaments and biological substances
CPT/HCPCS: 36415; 36600; 70450; 71045; 71250; 72125; 74176; 80048; 80053; 81001; 82140; 82435; 82533; 82803; 82947; 82948; 83605; 83735; 83880; 83970; 84100; 84132; 84165; 84295; 84484; 85007; 85018; 85025; 85027; 85378; 85610; 85730; 86850; 86900; 86901; 87040; 87088; 87635; 87804; 93005; 93970; 97039; C1751; C1894; C9113; G0378; J0692; J1120; J1170; J1650; J1815; J2020; J2185; J2405; J3370; J3430; J3475; J3480; J3490; P9045